=== PATIENT | female | born 1985 | race Caucasian/White ===

== ENCOUNTER 2024-11-11 10:19 | Emergency (ER) | payer SELFPAY ==
[2024-11-11] VITALS (9 sets, daily range): BP systolic 106–155; BP diastolic 56–100; PULSE 62–97; RESP 15–18; TEMP 36.7–36.8; O2SAT 98–100
--- NOTE | ~2024-11-11 | XR_ITS ---
EXAMINATION: XR chest 2V 11/11/2024 11:08 INDICATION: Left-sided chest pain TECHNIQUE:Frontal and lateral images of the chest were obtained. COMPARISON: None available FINDINGS: The lungs are clear. The cardiomediastinal silhouette is within normal limits. There are no pleural effusions. There is no pneumothorax suspected. IMPRESSION: 1: NO ACUTE CARDIOPULMONARY DISEASE. Reviewed, dictated and finalized at location Q.
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
--- NOTE | 2024-11-11 10:30 | ECG_ITS ---
Test Date: 2024-11-11 10:41:27 Measurements Intervals [place] Rate: 78 P: 21 GA: 147 QRS: 47 QRSD: 97 T: 17 QT: 379 QTc: 433 Interpretive Statements SINUS RHYTHM No previous ECG available for comparison Electronically Signed On 11-11-2024 20:07:50 CDT by Júnior Hurst M.D.
[2024-11-11 10:50] LABS: Hematocrit 39.9 % (37.0-47.0); Hemoglobin 12.2 g/dL (12.0-15.0); Immature Granulocyte Percent A 0.4 % (0-0.5); Lymphocytes Absolute Auto 2.45 K/mm3 (0.9-3.2); Mean Corpuscular HGB Conc 30.6 g/dl (32-36); Mean Corpuscular Hemoglobin 23.7 pg (26-34); Mean Corpuscular Volume 77.5 fl (80-100); Nucleated Red Blood Cells Absolute Auto 0.000 K/mm3 (0.0-0.012); Nucleated Red Blood Cells Perc 0.0 % (0.0-0.2); Platelet Count Result 323 k/mm3 (150-375); Red Blood Count 5.15 M/mm3 (4.2-5.4); White Blood Count 7.9 K/mm3 (4.5-10.0)
[2024-11-11] MEDS: ASPIRIN 81 MG CHEWABLE TABLET 324 MG PO (10:52)
[2024-11-11 11:02] LABS: INR 0.9; Prothrombin Time 12.6 Seconds (11.1-14.7)
[2024-11-11 11:03] LABS: Alanine Aminotransferase 16 U/L (6-35); Albumin Level 3.9 g/dL (3.5-5.1); Alkaline Phosphatase 83 U/L (38-126); Anion Gap 7 mmol/L (4-12); Aspartate Amino Transferase 26 U/L (14-36); Bilirubin,Total 0.2 mg/dL (0.2-1.3); Blood Urea Nitrogen 8 mg/dL (7-17); Calcium 8.9 mg/dL (8.4-10.2); Carbon Dioxide 24 mmol/L (22-30); Chloride 107 mmol/L (98-107); Estimated CRCL calculation 101 ml/min; Estimated Glomerular Filt Rate > 60; Glucose 94 mg/dL (65-110); Lipase 94 U/L (23-300); Partial Thromboplastin Time 26.8 Seconds (22.3-36.8); Potassium 3.9 mmol/L (3.4-5.0); Sodium 138 mmol/L (137-145); Total Protein 7.1 g/dL (6.3-8.2)
[2024-11-11 11:13] LABS: Troponin I < 0.012 ng/mL (0.000-0.034)
--- OUTSIDE RECORDS SUMMARY | 2024-11-11 11:14 | XMS_ITS | Clinical Summary ---
Author Organization [facility] Address [address] 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 This disclosure is being madepursuant to the Care Everywhere program and may not contain all information available regarding this patient. Last updated 17.[facility] Allergies Active Allergy Reactions Criticality Noted Date Comments Penicillins High 09/27/2012 Medications * Be aware that medications may not be up to date on this document. Alwaysverify current medications with the patient. clindamycin (CLEOCIN) 300 MG capsuleIndicati ons:Tooth pain Take 1 Cap by mouth 3 times daily. 30 Cap 0 02/18/2013 Active FLUoxetine (PROZAC) 20 MG capsule TAKE ONE CAPSULE BY MOUTH EVERY DAY 30 Cap 1 2013 Active Active Problems Problem Noted Date Diagnosed Date UTI (urinary tract infection) 12/24/2012 URI (upper respiratory infection) 12/24/2012 Depression with anxiety 11/18/2012 Back pain 09/27/2012 Resolved Problems Problem Noted Date Diagnosed Date Resolved Date Contusion of cheek 10/20/2012 3 Immunizations Immunization Administration Dates Next Due FLU VACCINE TRI IIV3 SPLIT PF IM (FLUVIRIN) 01/17 TDAP (7yrs+) 02/04/2013 Family History Medical History Relation Name Comments Heart Disease Father Diabetes Maternal Grandmother Diabetes Mother Heart Disease Paternal Grandfather Heart Disease Paternal Grandmother Relation Name Status Comments Brother 1 Alive Brother 2 Alive Father Alive Maternal Grandfather Maternal Grandmother Mother Alive Paternal Grandfather Paternal Grandmother Sister 1 Alive Sister 2 Alive Social History Tobacco Use Types Packs/Day Years Used Date Smoking Tobacco: Every Day Cigarettes 0.5 3 Smokeless Tobacco: Never Tobacco Cessation:Ready to Q uit: No; Counseling Given: Yes Alcohol Use Standard Drinks/Week Comments No 0 (1 standard drink = 0.6 oz pur e alcohol) Comments No Sex and Gender Information Value Date Recorded Sex Assigned at Not on file Legal Sex Female 9:08 AM CDT Gender Identity Not on file Sexual Orientation Not on file Occupation Industry Job Start Date Job End Date [employer] Not on file Not on file Not on file Last Filed Vital Signs Vital Sign Reading Time Taken Comments Blood Pressure 130/74 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 Pulse 86 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 Temperature 36.6 C (97.9 F) 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 Respiratory Rate - - Oxygen Saturation 98% 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 Inhaled Oxygen Concentration - - Weight 95.3 kg (210 lb 3.2 oz) 02/18/2013 3:21 P M MACHINE WORKER Height 157.5 cm (5' 2) 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 Body Mass Index 38.45 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 Plan of Treatment Health Maintenance Due Date Last Done Comments HIV SCREENING 2001 HEPATITIS C SCREENING 12/16/2004 HEPATITIS B VACCINE (1 of 3 - 19+ 3-dose series) 2005 PNEUMOCOCCAL VACCINE (1 of 2 - PCV) 2005 HPV VACCINE (1 - 3-dose SCDM series) 2013 DTAP/TDAP/TD VACCINES (2 - T d or Tdap) 02/04/2023 02/04/2013 DEPRESSION SCREENING 02/17/2024 COVID-19 VACCINE (1 - 2023-2 5 season) 2024 INFLUENZA VACCINE (#1) 2024 02/04/2013 ZOSTER VACCINE (1 of 2) 2036 HIB VACCINE Aged Out No longer eligi ble based on patient's age to complete this topic MENINGOCOCCAL (Group B) VACC INE SHARED DECISION-MAKING Aged Out No longer eligibl e based on patient's age to complete this topic MENINGOCOCCAL GROUPS A/C/Y/W VACCINE Aged Out No longer eligible b ased on patient's age to complete this topic Insurance [facility] MEDICAID - OUT OF STATE [place]
--- NOTE | 2024-11-11 11:21 | ED.GENADULT ---
HPI - General Adult General Chief complaint: Chest Pain Stated complaint: chest pain Time Seen by Provider: 11/11/24 10:38 History of Present Illness HPI narrative: 38-year-old female presents to the emergency department for evaluation for chest pain that started at work today. Patient does have history of anxiety but states she was not anxious during this time. Patient denies any prior history PE or DVT but patient does take control. Patient denies any associated shortness of breath. Patient did have nausea without vomiting. Patient denies any radiation of the pain. Patient states she does feel improved at this time. Patient denies any prior cardiac history. Related Data Allergies Allergy/AdvReac Type Severity Reaction Status Date / Time Penicillins Allergy Unknown Other Verified 11/11/24 10:30 Review of Systems Review of Systems: All systems reviewed & are unremarkable except as noted in HPI and below Exam Narrative: APPEARANCE: Well appearing, no pain, no distress, well-nourished. HEAD: normocephalic, atraumatic. EYES: PERRLA/EOMI, conjunctivae clear. NOSE: Normal no drainage EARS:TMS clear with good light reflex. THROAT: Pharynx clear, no exudate. NECK: Supple. No adenopathy, no masses. RESPIRATORY: Airway patent, respirations nonlabored. Clear to auscultation bilaterally, no rales, rhonchi, wheezing. CARDIOVASCULAR: Regular rate and rhythm without murmurs rubs or gallops. ABDOMINAL: Soft, nontender, nondistended, normal bowel sounds MUSCULOSKELETAL: Moves all extremities. Strength/ROM intact, No edema, No calf tenderness. NEURO: Alert. Cranial nerves II through XII intact. Good gait. Good coordination SKIN: Warm, dry. Normal Color Course Vital Signs Vital signs: Vital Signs Temperature 98.2 F 11/11/24 10:27 Pulse Rate 91 11/11/24 10:27 Respiratory Rate 16 11/11/24 10:27 Blood Pressure 155/100 H 11/11/24 10:27 Pulse Oximetry 100 11/11/24 10:27 Temperature 98.1 F 11/11/24 14:43 Pulse Rate 97 11/11/24 14:43 Respiratory Rate 18 11/11/24 14:43 Blood Pressure 106/62 11/11/24 14:43 Pulse Oximetry 99 11/11/24 14:43 Oxygen Delivery Room Air 11/11/24 10:39 Medical Decision Making [facility] Narrative Medical decision making narrative: 38-year-old female presents emergency department for evaluation for chest pain. Patient is afebrile with no leukocytosis hemoglobin of 12.2. INR 0.9. D-dimer of 0.39. Patient had negative serial troponins. No acute abnormalities on her CMP. Patient was negative for influenza RSV and for COVID. Chest x-ray shows no acute cardiopulmonary abnormalities. On re-evaluation patient does feel improved. Patient was encouraged close follow-up with primary care physician for additional outpatient cardiac testing. All questions concerns were addressed. Differential Diagnosis Differential Diagnosis: COVID, RSV influenza, pneumonia, pneumothorax or pulmonary embolism Vital Signs Vital Signs: Vital Signs Temperature 98.2 F 11/11/24 10:27 Pulse Rate 91 11/11/24 10:27 Respiratory Rate 16 11/11/24 10:27 Blood Pressure 155/100 H 11/11/24 10:27 Pulse Oximetry 100 11/11/24 10:27 Temperature 98.1 F 11/11/24 14:43 Pulse Rate 97 11/11/24 14:43 Respiratory Rate 18 11/11/24 14:43 Blood Pressure 106/62 11/11/24 14:43 Pulse Oximetry 99 11/11/24 14:43 Oxygen Delivery Room Air 11/11/24 10:39 Lab Data Lab results reviewed: Yes I reviewed the patient's lab results. 11/11/24 10:43 11/11/24 10:43 Labs: Lab Results 11/11/24 11/11/24 11/11/24 Range/Units 10:43 10:52 13:21 WBC 7.9 (4.5-10.0) K/mm3 RBC 5.15 (4.2-5.4) M/mm3 Hgb 12.2 (12.0-15.0) g/dL Hct 39.9 (37.0-47.0) % MCV 77.5 L (80-100) fl MCH 23.7 L (26-34) pg MCHC 30.6 L (32-36) g/dl RDW 17.4 H (11.5-14.5) % Plt Count 323 (150-375) k/mm3 MPV 9.9 (7.4-10.4) fl Immature Gran % (Auto) 0.4 (0-0.5) % Neut % (Auto) 59.9 (45.5-73.1) % Lymph % (Auto) 31.1 (18.3-44.2) % [place] % (Auto) 5.6 (2.6-8.5) % Eos % (Auto) 2.4 (0-4.4) % Baso % (Auto) 0.6 (0.2-1.2) % Lymph # (Auto) 2.45 (0.9-3.2) K/mm3 [place] # (Auto) 0.4 (0.1-0.6) K/mm3 Eos # (Auto) 0.2 (0-0.3) K/mm3 Baso # (Auto) 0.1 (0.0-0.1) K/mm3 Abs Immat Gran (auto) 0.03 (0.00-0.031) K/mm3 Absolute Neuts (auto) 4.7 (1.3-6.7) K/mm3 Absolute Nucleated RBC 0.000 (0.0-0.012) K/mm3 Nucleated RBC % 0.0 (0.0-0.2) % PT 12.6 (11.1-14.7) Seconds INR 0.9 APTT 26.8 (22.3-36.8) Seconds D-Dimer 0.39 (<0.48) ug/mL Sodium 138 (137-145) mmol/L Potassium 3.9 (3.4-5.0) mmol/L Chloride 107 (98-107) mmol/L Carbon Dioxide 24 (22-30) mmol/L Anion Gap 7 (4-12) mmol/L BUN 8 (7-17) mg/dL Creatinine 0.67 L (0.7-1.0) mg/dL Estim Creat Clear Calc 101 ml/min Estimated GFR > 60 (59 - ) Glucose 94 (65-110) mg/dL Calcium 8.9 (8.4-10.2) mg/dL Total Bilirubin 0.2 (0.2-1.3) mg/dL AST 26 (14-36) U/L ALT 16 (6-35) U/L Alkaline Phosphatase 83 (38-126) U/L Troponin I < 0.012 < 0.012 (0.000-0.034) ng/mL Total Protein 7.1 (6.3-8.2) g/dL Albumin 3.9 (3.5-5.1) g/dL Lipase 94 (23-300) U/L Influenza A (RT-PCR) Negative (Negative) Influenza B (RT-PCR) Negative (Negative) RSV (RT-PCR) Negative (Negative) SARS-CoV-2 RNA (RT-PCR) Negative (Negative) Imaging Data Radiologist's impression: Impressions Chest X-Ray 11/11/24 11:21 IMPRESSION: 1: NO ACUTE CARDIOPULMONARY DISEASE. ECG Data EKG #1: EKG Interpretation: normal rate, sinus rhythm, no ectopy, non-specific ST changes, normal QRS and NL axis Discharge Plan Discharge Clinical Impression: Atypical chest pain Patient Disposition: Home Condition: Stable Instructions: Antibiotic Form, Chest Pain (ED) Additional Instructions: Tylenol and ibuprofen for pain control. Have close follow-up with primary care physician for additional outpatient cardiac testing. If you have any worsening symptoms then please call or return to the emergency department. Patient Language: Ukrainian Follow-up/Referrals: Schilling,Vidhi Valdes APN [Primary Care Provider, Unknown] Quality HEART score for chest pain patients History: slightly suspicious ECG: normal Age: < or = to 45 years Risk factors: 1 or 2 risk factors Troponin: < or = to 1x normal limit Heart score: 1
[2024-11-11 11:39] LABS: Influenza A QL RT-PCR Negative (Negative); Influenza B QL RT-PCR Negative (Negative); RSV RNA, RT-PCR Negative (Negative); SARS-CoV-2 RNA PCR Negative (Negative)
[2024-11-11] MEDS: KETOROLAC 15 MG/ML VIAL (*BKC) IV PUSH (12:11)
--- NOTE | 2024-11-11 13:18 | ECG_ITS ---
Test Date: 2024-11-11 13:34:44 Measurements Intervals [place] Rate: 61 P: 3 IA: 148 QRS: 45 QRSD: 94 T: 38 QT: 421 QTc: 426 Interpretive Statements SINUS RHYTHM Compared to ECG 11/11/2024 10:41:27 No significant changes Electronically Signed On 11-11-2024 20:04:57 CDT by Júnior Hurst M.D.
[2024-11-11 13:52] LABS: Troponin I < 0.012 ng/mL (0.000-0.034)
== END 2024-11-11 14:47 | disposition home or self-care (01) ==
PROVIDERS: Emergency Provider Emergency Medicine; PCP Nurse Practitioner Family
DX: R07.89 Other chest pain (principal); Z20.822 Contact with and (suspected) exposure to COVID-19
CPT/HCPCS: 36415; 71046; 80053; 83690; 84484; 85025; 85380; 85610; 85730; 87637; 93005; 96374; 99284; A9270; J1885